=== PATIENT | female | born 1940 | race Hispanic/Latino ===

== ENCOUNTER 2018-01-05 06:44 | Day surgery (SDC) | payer MEDICARE, OTHER ==
[2018-01-04 09:52] VITALS: BP 108/61
[2018-01-04 10:21] LABS: MEAN CORPUSCULAR HEMOGLOBIN 29.5 pg (27.0-33.0); MEAN CORPUSCULAR HGB CONC 33.4 g/dL (32.0-36.0); MEAN CORPUSCULAR VOLUME 88.3 fL (79-99); PLATELET COUNT (AUTO) 252 K/uL (130-400); RED BLOOD CELL COUNT(AUTO) 4.53 MIL/uL (4.00-5.50); RED CELL DISTRIBUTION WIDTH 15.1 % (11.0-15.5); WHITE BLOOD COUNT (AUTO) 5.6 K/uL (4.8-10.8)
[2018-01-04 10:31] LABS: INR 0.94 (0.85-1.15); PARTIAL THROMBOPLASTIN TIME 25.2 SEC (26.3-35.5); PROTHROMBIN TIME 9.9 SEC (9.6-11.6)
[2018-01-04 10:39] LABS: CREATININE 0.7 mg/dL (0.5-1.5); POTASSIUM 4.6 mmol/L (3.5-5.1)
[2018-01-04 10:50] LABS: APPEARANCE,URINE Clear (CLEAR); BILIRUBIN,URINE Negative (NEGATIVE); COLOR,URINE Yellow (YELLOW); GLUCOSE, URINE (UA) Negative (NEGATIVE); KETONES,URINE Negative (NEGATIVE); LEUKOCYTE ESTERASE ,URINE Trace (NEGATIVE); NITRATE,URINE Negative (NEGATIVE); OCCULT BLOOD,URINE Moderate (NEGATIVE); PH,URINE 5.5 (5.0-8.0); PROTEIN,URINE POS 1+ (NEGATIVE); UROBILINOGEN,URINE 0.2 mg/dL (0.2-1.0)
[2018-01-04 11:05] LABS: BACTERIA,URINE Rare /HPF (None Seen); RENAL EPITHELIAL CELLS,URINE Few /HPF (None Seen); WBC,URINE 0-1 /HPF (0-1)
[2018-01-05] VITALS (12 sets, daily range): BP systolic 107–136; BP diastolic 51–82
[~2018-01-05] VITALS: Ht 149.9 cm; Wt 63.0 kg
[~2018-01-05 06:44] MED LIST: ALPR1TAB7 PO; CLOP75TA14 PO; FOLI0.4T2 PO; LOSA25TA16 PO; ROSU40 PO
[2018-01-05] MEDS ORDERED: LACTATED RINGERS 1000ML 1,000 ML IV ONE (07:12)
[2018-01-05] MEDS: CEFAZOLIN SODIUM 1 GM VIAL ONE ×2 (07:24→09:18)
[2018-01-05] MEDS ORDERED: ESOM40CA PO (07:30)
[2018-01-05] MEDS ORDERED: TRAM50TA4 PO (07:30)
[2018-01-05] MEDS ORDERED: UBID100C10 PO (07:30)
[2018-01-05] MEDS ORDERED: CART1TAB5 PO (07:30)
[2018-01-05] MEDS ORDERED: ONDANSETRON HCL 4 MG/2 ML VIAL ONE (07:34)
[2018-01-05] MEDS ORDERED: LIDOCAINE PF 2% 5ML ABBOJECT ONE (07:34)
[2018-01-05] MEDS ORDERED: FENTANYL CITRATE PF 50 MCG/1 ML 2ML VIAL ONE (07:34)
[2018-01-05] MEDS ORDERED: PROPOFOL 10 MG/ML 20ML VIAL IV ONE (07:34)
[2018-01-05] MEDS ORDERED: PHENYLEPHRINE HCL 10 MG/ML 1ML VIAL IV ONE (07:34)
[2018-01-05] MEDS ORDERED: EPHEDRINE SULFATE 50 MG/ML AMPULE ONE (07:34)
[2018-01-05] MEDS ORDERED: FAMOTIDINE/PF 20 MG/2 ML VIAL IV ONE (08:26)
[2018-01-05] MEDS ORDERED: IOHEXOL-350 50ML VIAL IV ONE (09:26)
[2018-01-05] MEDS ORDERED: IOHEXOL-300 50 ML VIAL IV ONE (09:26)
[2018-01-05] MEDS ORDERED: DEXAMETHASONE SOD PHOSPHATE 4 MG/ML 1ML VIAL ONE (10:15)
[2018-01-05] MEDS ORDERED: ACETAMINOPHEN-CODEINE 300/30MG TAB ONE (11:53)
== END 2018-01-05 12:50 | disposition home or self-care (01) ==
LOC: DAH 06:44 → SUH 06:44
PROVIDERS: ATTEND Urology
DX: N20.0 Calculus of kidney (principal); I10 Essential (primary) hypertension; K21.9 Gastro-esophageal reflux disease without esophagitis; M19.90 Unspecified osteoarthritis, unspecified site; M85.80 Other specified disorders of bone density and structure, unspecified site; Z79.899 Other long term (current) drug therapy; Z79.01 Long term (current) use of anticoagulants; Z98.890 Other specified postprocedural states; Z86.73 Personal history of transient ischemic attack (TIA), and cerebral infarction without residual deficits
CPT/HCPCS: 36415; 50590; 71046; 74018; 80048; 81001; 85027; 85610; 85730; 87088; 93005; A4218; A4600; J0690; J1100; J2001; J2370; J2405; J2704; J3010; J3490 ×2; J7120; Q9967

== ENCOUNTER → 2018-01-14 | Outpatient (CLI) | payer MEDICARE ==
[~2018-01-14] MED LIST changes: +CART1TAB5 PO; +ESOM40CA PO; +TRAM50TA4 PO; +UBID100C10 PO
== END | disposition home or self-care (01) ==
LOC: RAH 08:29
PROVIDERS: ATTEND Urology
DX: M47.897 Other spondylosis, lumbosacral region (principal); N20.1 Calculus of ureter; N28.89 Other specified disorders of kidney and ureter; I10 Essential (primary) hypertension
CPT/HCPCS: 74018; 76100

== ENCOUNTER 2018-07-27 10:48 | Emergency (ER) | payer MEDICARE ==
[~2018-07-27 10:48] MED LIST changes: -LOSA25TA16 PO; +LOSA25TA41 PO
[2018-07-27] MEDS ORDERED: DEXAMETHASONE SOD PHOSPHATE 10MG/ML 1ML VIAL ONE (11:34)
[2018-07-27 11:40] LABS: BASOPHILS % (AUTO) 0.5 % (0.0-5.0); EOSINOPHILS % (AUTO) 0.9 % (0.0-8.0); HEMATOCRIT 38.8 % (36-48); MEAN CORPUSCULAR HEMOGLOBIN 28.6 pg (27.0-33.0); MEAN CORPUSCULAR HGB CONC 33.1 g/dL (32.0-36.0); MEAN CORPUSCULAR VOLUME 86.5 fL (79-99); MONOCYTES % (AUTO) 13.5 % (3.0-13.0); NEUTROPHILS % (AUTO) 66.1 % (40.0-77.0); PLATELET COUNT (AUTO) 226 K/uL (130-400); RED BLOOD CELL COUNT(AUTO) 4.49 MIL/uL (4.00-5.50); RED CELL DISTRIBUTION WIDTH 15.2 % (11.0-15.5); WHITE BLOOD COUNT (AUTO) 6.2 K/uL (4.8-10.8)
[2018-07-27 11:40] LABS: APPEARANCE,URINE Clear (CLEAR); BILIRUBIN,URINE Negative (NEGATIVE); COLOR,URINE Yellow (YELLOW); GLUCOSE, URINE (UA) Negative (NEGATIVE); KETONES,URINE Negative (NEGATIVE); LEUKOCYTE ESTERASE ,URINE Negative (NEGATIVE); NITRATE,URINE Negative (NEGATIVE); OCCULT BLOOD,URINE Small (NEGATIVE); PH,URINE 7.5 (5.0-8.0); PROTEIN,URINE POS 2+ mg/dL (NEGATIVE)
[2018-07-27] MEDS ORDERED: IPRATROPIUM/ALBUTEROL SULFATE 3 ML SOLUTION IH ONE (11:45)
[2018-07-27 11:50] LABS: BACTERIA,URINE Rare /HPF (None Seen); SQUAMOUS EPITHELIAL CELL,UR Rare /HPF (0-2); WBC,URINE None Seen /HPF (0-1)
[2018-07-27 11:51] LABS: CREATININE 0.8 mg/dL (0.5-1.5); POTASSIUM 3.9 mmol/L (3.5-5.1)
[2018-07-27 11:59] LABS: ALBUMIN 3.1 g/dL (3.5-5.0); BILIRUBIN,DIRECT 0.2 mg/dL (0.0-0.3); BILIRUBIN,TOTAL 0.9 mg/dL (0.2-1.0); TOTAL PROTEIN, SERUM 7.2 g/dL (6.0-8.3)
[2018-07-27 12:11] LABS: B-TYPE NATRIURETIC PEPTIDE 52 pg/mL (0-100)
== END 2018-07-27 13:21 | disposition home or self-care (01) ==
LOC: EDH 10:48
DX: J20.9 Acute bronchitis, unspecified (principal); Z86.73 Personal history of transient ischemic attack (TIA), and cerebral infarction without residual deficits; Z87.442 Personal history of urinary calculi
CPT/HCPCS: 36415; 71046; 80048; 80076; 81001; 82550; 83880; 84484; 85025; 87804 ×2; 93005; 94640; 96374; 96375; 99284; J1100